=== PATIENT | male | born 1985 | race African-American/Black ===

== ENCOUNTER 2017-11-07 12:03 | Emergency (ER) | payer OTHER ==
[~2017-11-07] VITALS: Ht 177.8 cm; Wt 103.1 kg
[2017-11-07 13:10] VITALS: BP 147/84
== END 2017-11-07 13:14 | disposition home or self-care (01) ==
LOC: EME 12:03
PROC: 0QSQXZZ Reposition Right Toe Phalanx, External Approach (ICD-10-PCS; principal; 2017-11-07)
DX: S92.531A Displaced fracture of distal phalanx of right lesser toe(s), initial encounter for closed fracture (principal); S90.121A Contusion of right lesser toe(s) without damage to nail, initial encounter; W22.09XA Striking against other stationary object, initial encounter; Y93.01 Activity, walking, marching and hiking; Y92.009 Unspecified place in unspecified non-institutional (private) residence as the place of occurrence of the external cause
CPT/HCPCS: 73630; 99281; 99283